=== PATIENT | female | born 1980 | race American Indian/Alaskan Native ===

== ENCOUNTER 2019-04-09 08:53 | Emergency (ER) | payer SELFPAY ==
[2019-04-09 09:03] VITALS: BP 159/90
[2019-04-09] MEDS ORDERED: FUL-GLO OP ONE (10:32)
[2019-04-09] MEDS ORDERED: TETRACAINE 0.5% OU ONE (10:32)
--- NOTE | 2019-04-09 10:34 | Emergency Department Report ---
Eye Injury/Foreign Body - HPI Duration: 3 Days Eye Location: Left Severity: Mild Tetanus Status: Up to Date Eye Symptoms: Eye Pain: No, Blurred Vision: No, Eye Redness: Yes, Grinding/Hammering Metal: No, Used Eye Protection: No, Contact Lens Use: No, Recalls Injury: No, Photophobia: No Other History: 39 yo with several day history of l eye irritation and sensation of foreign body. no trauma. no welding. no contacts. no dust exposure etc. no eye pain. globe intact. conjunctiva red. perrl. Has taken nothing at home ED Review of Systems ROS: Stated complaint: EYE IRRITATION Other details as noted in HPI Comment: All other systems reviewed and negative ED Past Medical Hx - Past Medical History Previous Medical History?: Yes Hx Asthma: Yes - Surgical History Past Surgical History?: No - Social History Smoking Status: Never Smoker Substance Use Type: None - Medications Home Medications: Home Medications Medication Instructions Recorded Confirmed Last Taken Type Polymyxin B Sulf/Trimethoprim 1 drop OS QID #1 each 04/09/19 Unknown Rx [Polytrim Eye Drops 56662mcwxk/0.1%] Eye Injury Exam - Exam General: Vital signs noted. No distress. Alert and acting appropriately. alert and oriented perrla l conjunctiva red stain reveals corneal abrasion at center of eye; no fb EOM intact ambulatory s1s2 lungs cta ED Course Vital Signs 04/09/19 09:01 Temperature 98.5 F Pulse Rate 76 Respiratory 16 Rate Blood Pressure 159/90 O2 Sat by Pulse 100 Oximetry - Eye Procedure Alcaine Drops Administered: Yes Cyclogel 2 Drops Administered: left eye Antibiotic Oinment/Drps Admin: left eye ED Medical Decision Making - Medical Decision Making abrasion on exam pain or fb sensation relieved with tetracain dc home with dc plan of care and optha followup Vital Signs 04/09/19 09:01 Temperature 98.5 F Pulse Rate 76 Respiratory 16 Rate Blood Pressure 159/90 O2 Sat by Pulse 100 Oximetry - Differential Diagnosis simple eye Critical care attestation.: If time is entered above; I have spent that time in minutes in the direct care of this critically ill patient, excluding procedure time. ED Disposition Clinical Impression: Corneal abrasion Disposition: DC-01 TO HOME OR SELFCARE Is pt being admited?: No Does the pt Need Aspirin: No Condition: Stable Instructions: Corneal Abrasion (ED) Additional Instructions: DO NOT RUB EYE COOL COMPRESSES TO EYE MOTRIN OR TYLENOL FOR PAIN MED ORDERED TODAY FOR 5 DAYS FOLLOW UP WITH EYE MD REFERRAL BELOW Referrals: KERI PINA MD [Staff Physician] - 3-5 Days Time of Disposition: 11:05
[2019-04-09] MEDS ORDERED: ERYTHROMYCIN OPHTH OINT OU STA (10:40)
== END 2019-04-09 11:17 | disposition home or self-care (01) ==
LOC: ED 08:53
DX: S05.02XA Injury of conjunctiva and corneal abrasion without foreign body, left eye, initial encounter (principal); X58.XXXA Exposure to other specified factors, initial encounter; Y93.89 Activity, other specified; Y92.89 Other specified places as the place of occurrence of the external cause; Y99.8 Other external cause status

== ENCOUNTER 2021-02-27 01:18 | Emergency (ER) | payer SELFPAY ==
--- NOTE | 2021-02-27 03:28 | Emergency Department Report ---
ED Female HPI - General Stated complaint: EXCESSIVE BLEEDING/ Source: patient Mode of arrival: Ambulatory Limitations: No Limitations - History of Present Illness Initial comments: Patient is a [id number] 41-year-old -[place] female who is 1 week s/p D&C procedure to evacuate a 9-week gestation , and who complains of heavy vaginal bleeding for the last 1 week, worse in the last 24 hours with large blood clots. Patient states that the bleeding has been constant and especially heavy in the last 2 days. Patient denies headache, dizziness, syncope, abdominal pain, nausea and vomiting, dysuria, urinary frequency and urgency, vaginal discharge, low back pain, fever and chills or chest pain or shortness of breath. MD Complaint: vaginal bleeding -: Sudden, week(s) (1) Location: other (VAGINAL) Radiation: non-radiating Severity: mild Severity scale (0 -10): 1 Quality: cramping, dull Consistency: intermittent Improves with: none Worsens with: none Are you Now?: No ( 1 Week s/p abortio) Associated Symptoms: denies other symptoms, vaginal bleeding. denies: vaginal discharge, abdominal pain, nausea/vomiting, fever/chills, headaches, loss of appetite, hematuria, rash, seizure, shortness of breath, syncope, weakness - Related Data Sexually active: Yes : 11 Para: 5 A: 6 Previous Rx's Medication Instructions Recorded Last Taken Type Polymyxin B Sulf/Trimethoprim 1 drop OS QID #1 each 04/09/19 Unknown Rx [Polytrim Eye Drops [id number]/0.1%] HYDROcodone/APAP 5-325 [[place] 1 each PO Q6HR PRN #14 tablet 05/29/19 Unknown Rx 5/325] methOCARBAMOL [Robaxin TAB] 500 mg PO Q6H PRN #14 tablet 05/29/19 Unknown Rx traMADoL [Ultram] 50 mg PO Q6HR PRN #12 tablet 05/29/19 Unknown Rx Allergies Allergy/AdvReac Type Severity Reaction Status Date / Time No Known Allergies Allergy Unverified 09/21/13 18:21 ED Review of Systems ROS: Stated complaint: EXCESSIVE BLEEDING/ Other details as noted in HPI Constitutional: denies: chills, fever Eyes: denies: eye pain, eye discharge, vision change ENT: denies: ear pain, throat pain Respiratory: denies: cough, shortness of breath, wheezing Cardiovascular: denies: chest pain, palpitations Endocrine: no symptoms reported Gastrointestinal: denies: abdominal pain, nausea, vomiting, diarrhea Genitourinary: abnormal menses (Heavy vaginal bleeding). denies: urgency, d ysuria, frequency, discharge Musculoskeletal: denies: back pain, joint swelling, arthralgia Skin: denies: rash, lesions Neurological: denies: headache, weakness, paresthesias Psychiatric: denies: anxiety, depression Hematological/Lymphatic: denies: easy bleeding, easy bruising ED Past Medical Hx - Past Medical History Hx Asthma: Yes - Social History Smoking Status: Never Smoker Substance Use Type: None - Medications Home Medications: Home Medications Medication Instructions Recorded Confirmed Last Taken Type Polymyxin B Sulf/Trimethoprim 1 drop OS QID #1 each 04/09/19 Unknown Rx [Polytrim Eye Drops [id number]/0.1%] HYDROcodone/APAP 5-325 [[place] 1 each PO Q6HR PRN #14 tablet 05/29/19 Unknown Rx 5/325] methOCARBAMOL [Robaxin TAB] 500 mg PO Q6H PRN #14 tablet 05/29/19 Unknown Rx traMADoL [Ultram] 50 mg PO Q6HR PRN #12 tablet 05/29/19 Unknown Rx ED Physical Exam - General General appearance: alert, in no apparent distress - Head Head exam: Present: atraumatic, normocephalic, normal inspection - Eye Eye exam: Present: normal appearance, PERRL, EOMI Pupils: Present: normal accommodation - ENT ENT exam: Present: normal exam, normal orophraynx, mucous membranes moist, TM's normal bilaterally, normal external ear exam - Neck Neck exam: Present: normal inspection, full ROM - Respiratory Respiratory exam: Present: normal lung sounds bilaterally. Absent: respiratory distress, wheezes, rales, rhonchi, chest wall tenderness, accessory muscle use, prolonged expiratory - Cardiovascular Cardiovascular Exam: Present: regular rate, normal rhythm, normal heart sounds. Absent: systolic murmur, diastolic murmur, rubs, gallop - GI/Abdominal GI/Abdominal exam: Present: soft, normal bowel sounds. Absent: tenderness, guarding, rebound, rigid, hyperactive bowel sounds, hypoactive bowel sounds, organomegaly - Bi-manual exam: Present: other (Pelvic exam deferred at this time) - Extremities Exam Extremities exam: Present: normal inspection, full ROM, normal capillary refill - Back Exam Back exam: Present: normal inspection, full ROM. Absent: tenderness, CVA tenderness (R), CVA tenderness (L), muscle spasm, paraspinal tenderness - Neurological Exam Neurological exam: Present: alert, oriented X3, CN II-XII intact, normal gait, reflexes normal - Psychiatric Psychiatric exam: Present: normal affect, normal mood - Skin Skin exam: Present: warm, dry, intact, normal color. Absent: rash ED Course Vital Signs 02/27/21 03:17 Temperature 98.1 F Pulse Rate 88 Respiratory 18 Rate Blood Pressure 122/78 O2 Sat by Pulse 100 Oximetry ED Medical Decision Making - Lab Data Result diagrams: 02/27/21 03:31 02/27/21 03:31 - Radiology Data Radiology results: report reviewed, image reviewed [facility] [address] [place] [address] Ultrasound Report Signed Patient: ALEX REICH MR#: [id number] : 1980 Acct:[id number] Age/Sex: 41 / F ADM Date: 02/27/21 Loc: ED Attending Dr: Ordering Physician: RAMÍREZ LYN Date of Service: 02/27/21 Procedure(s): US pelvic complete Accession Number(s): [id number] cc: RAMÍREZ LYN Pelvic ultrasound with Doppler INDICATION: Pelvic pain FINDINGS: Uterus measures 7 x 7 x 4 cm. The endometrial thickness is 3 mm. Both ovaries appear normal with normal Doppler flow. No significant free pelvic fluid. IMPRESSION: No acute findings appreciated. The visualized endometrial complex is within normal limits Signer Name: Hong Vega MD Signed: 02/27/2021 4:19 AM Workstation Name: [id number] Transcribed By: BC Dictated By: Hong Vega MD Electronically Authenticated By: Hong Vega MD Signed Date/Time: 02/27/21418 DD/ 7 TD/TT: - Medical Decision Making This is a [id number] 41-year-old -[place] female who is 1 week s/p D&C procedure to evacuate a 9-week gestation , and who complains of heavy vaginal bleeding for the last 1 week, worse in the last 24 hours with large blood clots. Patient states that the bleeding has been constant and especially heavy in the last 2 days. In the ED, patient is alert and oriented x3 and is not in any distress, vital signs are stable. Lab test results were reviewed and are all nonactionable. Pelvic ultrasound showed no acute abnormalities, and also showed no intrauterine . Patient's vaginal bleeding is due to a recent endometrial procedure, which is expected after D&C procedure. Patient was therefore advised to maintain a complete pelvic rest, drink plenty of fluids and follow-up with the [employer] physician in 5 to 7 days for reevaluation. Patient was advised return to the ED immediately if symptoms get worse. - Differential Diagnosis Anemia; IUP; UTI; ovarian cyst; subchorionic bleed; dehydration Critical care attestation.: If time is entered above; I have spent that time in minutes in the direct care of this critically ill patient, excluding procedure time. ED Disposition Clinical Impression: Dysfunctional or functional uterine hemorrhage, Postoperative hemorrhage of vagina following genitourinary procedure Disposition: DC-01 TO HOME OR SELFCARE Is pt being admited?: No Does the pt Need Aspirin: No Condition: Stable Instructions: Abnormal Uterine Bleeding, [id number]-lj-[id number] Additional Instructions: All lab test results are reviewed and are all nonactionable. Pelvic ultrasound showed no acute abnormalities, and also showed no intrauterine . Therefore maintain a complete pelvic rest, take medication as needed for pain and drink plenty of fluids. Follow-up with your [employer] physician in 5 to 7 days for reevaluation. Return to the ED immediately if symptoms get worse. Referrals: LARA SUN DC [Referring] - 3-5 Days VARSHA SUN MD [Staff Physician] - 3-5 Days Time of Disposition: 04:58 Print Language: UPPER SORBIAN
[2021-02-27 03:49] VITALS: BP 122/78
[2021-02-27 04:10] LABS: Basophils # (Auto) 0.1 K/mm3 (0.0-0.1); Basophils % (Auto) 0.9 % (0.0-1.8); Eosinophils # (Auto) 0.1 K/mm3 (0.0-0.4); Eosinophils % (Auto) 1.3 % (0.0-4.3); Hematocrit 32.1 % (30.3-42.9); Hemoglobin 10.8 gm/dl (10.1-14.3); Lymphocytes # (Auto) 0.8 K/mm3 (1.2-5.4); Lymphocytes % (Auto) 11.9 % (13.4-35.0); Mean Corpuscular HGB Conc 34 % (30-34); Mean Corpuscular Volume 86 fl (79-97); Monocytes # (Auto) 0.3 K/mm3 (0.0-0.8); Monocytes % (Auto) 4.4 % (0.0-7.3); Platelet Count 258 K/mm3 (140-440); Red Blood Count 3.72 M/mm3 (3.65-5.03); Red Cell Distribution Width 14.3 % (13.2-15.2)
--- NOTE | 2021-02-27 04:24 | Ultrasound Report ---
Pelvic ultrasound with Doppler INDICATION: Pelvic pain FINDINGS: Uterus measures 7 x 7 x 4 cm. The endometrial thickness is 3 mm. Both ovaries appear normal with normal Doppler flow. No significant free pelvic fluid. IMPRESSION: No acute findings appreciated. The visualized endometrial complex is within normal limits Signer Name: Hong Vega MD Signed: 02/27/2021 4:19 AM Workstation Name: [id number]
[2021-02-27 04:29] LABS: Alanine Aminotransferase 7 units/L (7-56); Albumin 4.2 g/dL (3.9-5); Blood Urea Nitrogen 8 mg/dL (7-17); Calcium 8.4 mg/dL (8.4-10.2); Hemolysis Index 4
[2021-02-27 04:30] LABS: Bacteria,Urine 1+ /HPF (Negative); Bilirubin,Urine NEG (Negative); Blood,Urine LG (Negative); Color,Urine Yellow (Yellow); Mucus,Urine FEW /HPF; Protein,Urine <15 mg/dL mg/dL (Negative); Urobilinogen,Urine < 2.0 mg/dL (<2.0)
[2021-02-27 04:34] LABS: BUN/Creatinine Ratio 13
[2021-02-27 04:34] LABS: RBC,Urine > 182.0 /HPF (0.0-6.0)
== END 2021-02-27 05:30 | disposition home or self-care (01) ==
LOC: ED 01:18
DX: N99.820 Postprocedural hemorrhage of a genitourinary system organ or structure following a genitourinary system procedure (principal); N93.8 Other specified abnormal uterine and vaginal bleeding; J45.909 Unspecified asthma, uncomplicated; Z79.899 Other long term (current) drug therapy; Y83.8 Other surgical procedures as the cause of abnormal reaction of the patient, or of later complication, without mention of misadventure at the time of the procedure
CPT/HCPCS: 36415; 76856; 80053; 81001; 84702; 84703; 85025; 99284